=== PATIENT | male | born 1970 | race American Indian/Alaskan Native ===

== ENCOUNTER 2019-02-24 00:26 | Emergency (ER) | payer MEDICAID, OTHER ==
[2019-02-24 00:41] VITALS: BP 118/72
--- NOTE | 2019-02-24 06:33 | XRay Report ---
Right shoulder 3 views INDICATION: Right shoulder pain following injury IMPRESSION: No fracture or subluxation identified. Signer Name: Jace Gutierrez MD Signed: 02/24/2019 6:29 AM Workstation Name: [id number]
--- NOTE | 2019-02-24 06:34 | XRay Report ---
Cervical spine 3 views INDICATION: Neck pain following injury IMPRESSION: No fracture or subluxation identified. Signer Name: Jace Gutierrez MD Signed: 02/24/2019 6:29 AM Workstation Name: [id number]
--- NOTE | 2019-02-24 06:34 | XRay Report ---
Lumbar spine 3 views INDICATION: Low back pain following injury IMPRESSION: No fracture or subluxation identified. Mild L5-S1 facet type arthropathy. Signer Name: Jace Gutierrez MD Signed: 02/24/2019 6:29 AM Workstation Name: [id number]
[2019-02-24] MEDS ORDERED: IBUPROFEN PO ONE (08:14)
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
== END 2019-02-24 08:35 | disposition home or self-care (01) ==
LOC: ED 00:26
DX: M54.2 Cervicalgia (principal); M54.9 Dorsalgia, unspecified; Z90.89 Acquired absence of other organs; F17.200 Nicotine dependence, unspecified, uncomplicated
CPT/HCPCS: 72040; 72100